=== PATIENT | female | born 1945 | race Caucasian/White ===

== ENCOUNTER 2016-06-12 17:22 | Inpatient (IN) ==
[2016-06-12] MEDS ORDERED: *HR* OxyCODONE Immed Rel 5 MG TABLET PO PRN (18:03)
[2016-06-12] MEDS: Baclofen 10 MG TABLET PO SCH (20:56)
[2016-06-12] MEDS: Pregabalin 50 MG CAPSULE PO SCH (20:56)
[2016-06-12] MEDS: Gabapentin 400 MG CAPSULE PO SCH (20:57)
[2016-06-13 04:59] LABS: INR 1.2; Prothrombin Time 13.5 Seconds (9.4-12.1)
[2016-06-13 05:02] LABS: Activated Partial Thrombo Time 27.9 Seconds (26.0-36.0)
[2016-06-13 05:09] LABS: BUN/Creatinine Ratio 18 (6-26); Blood Urea Nitrogen 12 mg/dL (7-20); Calcium 8.9 mg/dL (8.6-10.8); Carbon Dioxide 24 mEq/L (19-29); Chloride 108 mEq/L (98-109); Glucose 96 mg/dL (70-99); Osmolality,Calculated 292 (280-300); Potassium 3.3 mEq/L (3.5-4.5); Sodium 141 mEq/L (136-145); eGFR For African Americans > 60 (> 60); eGFR For Non-African Americans > 60 (> 60)
[2016-06-13 06:01] LABS: Basophils % 0.4 %; Eosinophils # 0.3 K/mcL (0.0-0.6); Eosinophils % 2.5 %; Hematocrit 26.7 % (35.3-44.9); Hemoglobin 8.7 g/dL (11.5-15.4); Immature Granulocytes % 0.6 % (0-4); Lymphocytes # 1.6 K/mcL (0.6-4.6); Lymphocytes % 16.2 %; Mean Corpuscular HGB Conc 32.6 g/dL (31.6-35.5); Mean Corpuscular Hemoglobin 29.2 pg (28.0-33.3); Mean Corpuscular Volume 89.6 fL (83.0-100.0); Mean Platelet Volume 10.3 fL (9.4-12.4); Monocytes # 0.8 K/mcL (0.0-1.3); Monocytes % 8.1 %; Neutrophils # 7.3 K/mcL (1.6-8.9); Platelet Count 242 K/mcL (140-400); Red Blood Count 2.98 M/mcL (3.82-4.97); Red Cell Distribution Width 14.6 % (11.5-14.5); Segmented Neutrophils % 72.2 %
[2016-06-13] MEDS: Gabapentin 400 MG CAPSULE PO SCH ×3 (08:22→21:26)
[2016-06-13] MEDS: Pregabalin 50 MG CAPSULE PO SCH ×2 (08:23→21:26)
[2016-06-13] MEDS: Baclofen 10 MG TABLET PO SCH ×3 (08:23→21:26)
--- NOTE | 2016-06-13 08:30 | Internal Med History&Physical ---
Date of Encounter: 06/13/16 Time of Encounter: 08:27 Assessment and Plan (1) History of lumbar fusion Current visit: Yes Status: Acute PT OT to improve functional endurance, mobility and transfer. PTOT to work on standing tolerance balance gait improving strength. Internal Medicine - H&P: HPI Admitted From: Intrahospital Transfer History of present illness: Ms. Villareal is a 70 year old female admitted to this facility status post lumbar spinal fusion. She is a history of lumbar stenosis with radiculopathy spondylolisthesis. Today's examination she complains of moderate postop pain. She denies initial dose of breath. No chest pain. No numbness weakness. Past Med Surg Social Fam HX - Past Medical History Medical history: arthritis, GERD, hypertension Psychiatric history: depression - Past Surgical History Surgical History: hysterectomy, knee replacement, orthopedic, other - Social History Smoking Status: Never smoker Smokeless Tobacco Status: No Alcohol use: none Drug use: none - Family History Father Living Status: Hx Family Cardiac Disorders: Yes ([place]) Mother Living Status: Hx Family Neurologic Disorders: Yes (alzheimer's) Internal Medicine - H&P: Meds Baclofen [Lioresal] 10 mg PO TID 06/09/16 [History] Dicyclomine [Bentyl] 10 mg PO QID PRN 06/09/16 [History] Gabapentin [Neurontin] 800 mg PO TID 06/09/16 [History] Nebivolol HCl [Bystolic] 10 mg PO DAILY 06/09/16 [History] Pantoprazole Sodium [Protonix] 40 mg PO DAILY PRN 06/09/16 [History] Pregabalin [Lyrica] 200 mg PO BID 06/09/16 [History] Simvastatin [Zocor] 20 mg PO DAILY 06/09/16 [History] Tramadol HCl [Ultram] 50 mg PO TID PRN 06/09/16 [History] OxyCODONE Immed Rel [Roxicodone 5 MG] 5 mg PO Q4HR PRN #60 tablet 06/12/16 [Rx] Allergies aspirin Adverse Reaction (Verified 06/09/16 14:32) See Comments bleeding ulcer NSAIDS (Non-Steroidal Anti-Inflamma Adverse Reaction (Verified 06/09/16 14:32) See Comments bleeding ulcer All Systems PM: A 10-system review of systems was performed and is negative for pertinent findings except as documented above in the HPI. - Cardiovascular Cardiovascular ROS IM: no chest pain, no diaphoresis, no dyspnea, no lightheadedness, no palpitations, no syncope - Respiratory Respiratory: no cough, no dyspnea, no wheezing, no excessive phlegm production - Gastrointestinal Gastrointestinal: no abdominal pain, no diarrhea, no hematemesis, no hematochezia, no melena, no nausea, no vomiting - Musculoskeletal Musculoskeletal ROS IM: back pain, limited range of motion - Constitutional Vitals: Temp Pulse Resp BP Pulse Ox 100.6 F H 83 18 153/83 94 L 06/13/16 07:26 06/13/16 07:26 06/13/16 07:26 06/13/16 07:26 06/13/16 07:26 General appearance: Present: A&O X 3, pleasant, no acute distress - Respiratory Respiratory exam: Present: CTAB. Absent: accessory muscle use, rales, rhonchi, wheezes - Cardiovascular Cardiovascular exam: Present: RRR, +S1, +S2. Absent: diastolic murmur, gallop, rubs, systolic murmur - GI/Abdominal GI/Abdominal exam: Present: normal bowel sounds, soft, no peritoneal signs. Absent: distended, tenderness - Extremities Exam Extremities exam: Present: warm, radial pulses palpable and symetrical. Absent : calf tenderness, cyanotic, pedal edema - Incison Incision: Present: clean and dry - Back Exam Back exam: Present: tenderness Internal Med - H&P Results - Labs CBC & Chem 7: 06/13/16 04:30 06/13/16 04:30 Labs: Short CBC 06/13/16 Range/Units 04:30 WBC 10.1 (4.3-11.1) K/mcL Hgb 8.7 L (11.5-15.4) g/dL Hct 26.7 L (35.3-44.9) % Plt Count 242 (140-400) K/mcL Neutrophils # 7.3 (1.6-8.9) K/mcL BMP 06/13/16 04:30 Sodium 141 Potassium 3.3 L Chloride 108 Carbon Dioxide 24 BUN 12 Creatinine 0.65 Glucose 96 Calcium 8.9 - VTE Documentation of Mechanical Device: Graduated compression elastic hosiery
[2016-06-14] MEDS: Gabapentin 400 MG CAPSULE PO SCH ×3 (08:06→19:50)
[2016-06-14] MEDS: Baclofen 10 MG TABLET PO SCH ×3 (08:06→19:48)
[2016-06-14] MEDS: Pregabalin 50 MG CAPSULE PO SCH ×2 (08:06→19:49)
[2016-06-15] MEDS: Baclofen 10 MG TABLET PO SCH ×3 (10:10→20:34)
[2016-06-15] MEDS: Gabapentin 400 MG CAPSULE PO SCH ×3 (10:10→20:34)
[2016-06-15] MEDS: Pregabalin 50 MG CAPSULE PO SCH ×2 (10:10→20:34)
--- NOTE | 2016-06-15 12:10 | Internal Med Progress Note ---
Date of Encounter: 06/15/16 Time of Encounter: 12:08 - Assessment and plan (1) History of lumbar fusion Current Visit: Yes Status: Acute Assessment and plan: He should is postop for lumbar fusion due to spinal stenosis (2) Lumbar stenosis Current Visit: No Status: Chronic Assessment and plan: Long-standing lumbar stenosis with compression. Patient states she had numbness of both lower extremities (3) Spondylolisthesis Current Visit: No Status: Chronic Assessment and plan: Noted Qualifiers: Spinal region: lumbar Qualified Code(s): M43.16 - Spondylolisthesis, lumbar region - Time Spent With Patient less than 15 minutes - Subjective Interval history: Patient states the pain is better each day and her movements are much improved independently. - Constitutional Vitals: Temp Pulse Resp BP Pulse Ox 98.3 F 78 18 129/73 97 06/15/16 06:00 06/15/16 06:00 06/15/16 06:00 06/15/16 06:00 06/15/16 06:00 General appearance: Present: A&O X 3, pleasant, no acute distress - Head Head exam: Present: atraumatic, normal inspection, normocephalic - Neck Neck exam general surgery: Present: supple, trachea midline. Absent: lymphadenopathy - Respiratory Respiratory exam: Present: CTAB. Absent: accessory muscle use, rales, rhonchi, wheezes - Cardiovascular Cardiovascular exam: Present: RRR, +S1, +S2. Absent: diastolic murmur, gallop, rubs, systolic murmur - GI/Abdominal GI/Abdominal exam: Present: normal bowel sounds, soft, no peritoneal signs. Absent: distended, tenderness Internal Medicine: Result - Labs CBC & Chem 7: 06/13/16 04:30 06/13/16 04:30 Labs: We will follow-up with potassium etc. - ABG Interpretation ABG results: PT/INR, D-dimer PT 13.5 Seconds (9.4-12.1) H 06/13/16 04:30 - VTE Documentation of Mechanical Device: Graduated compression elastic hosiery Consult Discharge Plan - Plan Referrals: Michela England, PAC [Physician Automotive Service Technician] - 06/24/16 8:20 am Lon Huitron MD [Primary Care Provider] -
[2016-06-16 06:10] LABS: BUN/Creatinine Ratio 16 (6-26); Basophils # 0.1 K/mcL (0.0-0.2); Basophils % 0.7 %; Blood Urea Nitrogen 9 mg/dL (7-20); Carbon Dioxide 24 mEq/L (19-29); Chloride 109 mEq/L (98-109); Eosinophils # 0.5 K/mcL (0.0-0.6); Glucose 97 mg/dL (70-99); Hematocrit 25.7 % (35.3-44.9); Hemoglobin 8.3 g/dL (11.5-15.4); Lymphocytes # 1.3 K/mcL (0.6-4.6); Lymphocytes % 19.1 %; Mean Corpuscular HGB Conc 32.3 g/dL (31.6-35.5); Mean Corpuscular Volume 89.9 fL (83.0-100.0); Mean Platelet Volume 9.4 fL (9.4-12.4); Monocytes # 0.8 K/mcL (0.0-1.3); Monocytes % 11.5 %; Neutrophils # 4.1 K/mcL (1.6-8.9); Osmolality,Calculated 295 (280-300); Platelet Count 333 K/mcL (140-400); Potassium 3.9 mEq/L (3.5-4.5); Red Blood Count 2.86 M/mcL (3.82-4.97); Red Cell Distribution Width 14.5 % (11.5-14.5); Segmented Neutrophils % 60.7 %; Sodium 143 mEq/L (136-145); eGFR For African Americans > 60 (> 60); eGFR For Non-African Americans > 60 (> 60)
[2016-06-16 07:20] VITALS: BP 148/79
[2016-06-16] MEDS: Pregabalin 50 MG CAPSULE PO SCH (08:10)
[2016-06-16] MEDS: Gabapentin 400 MG CAPSULE PO SCH ×2 (08:10→14:59)
[2016-06-16] MEDS: Baclofen 10 MG TABLET PO SCH ×2 (08:16→14:59)
--- NOTE | 2016-06-16 11:42 | Internal Med Progress Note ---
Date of Encounter: 06/16/16 Time of Encounter: 11:40 - Assessment and plan (1) History of lumbar fusion Current Visit: Yes Status: Acute Assessment and plan: Patient has undergone lumbar fusion status post spinal stenosis and is much improved pain is improved. (2) Lumbar stenosis Current Visit: Yes Status: Chronic Assessment and plan: Is the cause for her surgery is lumbar stenosis (3) Spondylolisthesis Current Visit: No Status: Chronic Assessment and plan: Noted Qualifiers: Spinal region: lumbar Qualified Code(s): M43.16 - Spondylolisthesis, lumbar region - Time Spent With Patient less than 15 minutes - Subjective Interval history: H and smiling working with PT walking down the braun using a walker - Constitutional Vitals: Temp Pulse Resp BP Pulse Ox 98.7 F 77 16 148/79 99 06/16/16 07:00 06/16/16 07:00 06/16/16 07:00 06/16/16 07:00 06/16/16 07:00 General appearance: Present: A&O X 3, pleasant, no acute distress - Head Head exam: Present: atraumatic, normal inspection, normocephalic - Neck Neck exam general surgery: Present: supple, trachea midline. Absent: lymphadenopathy - Respiratory Respiratory exam: Present: CTAB. Absent: accessory muscle use, rales, rhonchi, wheezes - Cardiovascular Cardiovascular exam: Present: RRR, +S1, +S2. Absent: diastolic murmur, gallop, rubs, systolic murmur - GI/Abdominal GI/Abdominal exam: Present: normal bowel sounds, soft, no peritoneal signs. Absent: distended, tenderness Internal Medicine: Result - Labs CBC & Chem 7: 06/16/16 05:30 06/16/16 05:30 Labs: Short CBC 06/16/16 Range/Units 05:30 WBC 6.8 (4.3-11.1) K/mcL Hgb 8.3 L (11.5-15.4) g/dL Hct 25.7 L (35.3-44.9) % Plt Count 333 (140-400) K/mcL Neutrophils # 4.1 (1.6-8.9) K/mcL BMP 06/16/16 05:30 Sodium 143 Potassium 3.9 Chloride 109 Carbon Dioxide 24 BUN 9 Creatinine 0.58 Glucose 97 Calcium 9.0 Labs look stable - ABG Interpretation ABG results: PT/INR, D-dimer PT 13.5 Seconds (9.4-12.1) H 06/13/16 04:30 - VTE Documentation of Mechanical Device: Graduated compression elastic hosiery Consult Discharge Plan - Plan Referrals: Michela England, PAC [Physician Aluminum Fabrication Supervisor] - 06/24/16 8:20 am Lon Huitron MD [Primary Care Provider] -
--- NOTE | 2016-06-16 14:13 | Discharge Summary ---
Date of Encounter: 06/16/16 Time of Encounter: 14:11 - Discharge Diagnosis (1) History of lumbar fusion Priority: Primary Status: Acute Comments: Patient had lumbar stenosis and surgery . (2) Lumbar stenosis Priority: Primary Status: Chronic Comments: This is the reason for the surgery (3) Spondylolisthesis Priority: Secondary Status: Chronic Comments: Noted Qualifiers: Spinal region: lumbar Qualified Code(s): M43.16 - Spondylolisthesis, lumbar region - Discharge Medications Home Medications: Baclofen [Lioresal] 10 mg PO TID 06/09/16 [History] Dicyclomine [Bentyl] 10 mg PO QID PRN 06/09/16 [History] Gabapentin [Neurontin] 800 mg PO TID 06/09/16 [History] Nebivolol HCl [Bystolic] 10 mg PO DAILY 06/09/16 [History] Pantoprazole Sodium [Protonix] 40 mg PO DAILY PRN 06/09/16 [History] Pregabalin [Lyrica] 200 mg PO BID 06/09/16 [History] Simvastatin [Zocor] 20 mg PO DAILY 06/09/16 [History] Tramadol HCl [Ultram] 50 mg PO TID PRN 06/09/16 [History] OxyCODONE Immed Rel [Roxicodone 5 MG] 5 mg PO Q4HR PRN #60 tablet 06/12/16 [Rx] Allergies/Adverse Reactions: Allergies aspirin Adverse Reaction (Verified 06/09/16 14:32) See Comments bleeding ulcer NSAIDS (Non-Steroidal Anti-Inflamma Adverse Reaction (Verified 06/09/16 14:32) See Comments bleeding ulcer Date of admission: 06/12/16 17:23 Primary care physician: Lon Huitron MD Consults: 06/12/16 17:52 Consult to Occupational Therapy [CONS] Routine Comment: Evaluate, develop and implement POC Consult to Physical Medicine/Rehab [CONS] Routine Reason for Consult: s/p lumbar spinal fusion Call Completed: Yes Consult to Physical Therapy [CONS] Routine Comment: Evaluate, develop and implement POC Consult to Recreational Therapy [CONS] Routine Comment: Evaluate, develop and implement POC Consult to Variety Lathe Operator [CONS] Routine Reason for SW Consult: d/c planning s/p lumbar spinal fusion Discharging clinician: Joseph Lee Anticipated date of discharge: 02/20/17 - Patient Status Disposition: Home, Self-Care Condition: Good Functional capacity at discharge: uses cane/walker Overall status at discharge: patient is progressing back to baseline - Discharge Instructions Follow Up With: Michela England PAC [Physician Wealth Management Consultant] - 06/24/16 8:20 am Lon Huitron MD [Primary Care Provider] - - Diet and Activity Activity: ambulate only with your walker Interval History: Patient was transferred here postop has done extremely well Hospital course: Ms. Villareal is a 70 year old female Patient's doing very well ambulating in the [place] pain is much improved she is going to be discharged home in the company of her family and follow-up as an outpatient. - Time Spent with Patient Total time spent providing and/or coordinating discharge services: Less than 30 minutes - Constitutional Vitals: Temp Pulse Resp BP Pulse Ox 98.7 F 77 16 148/79 99 06/16/16 07:00 06/16/16 07:00 06/16/16 07:00 06/16/16 07:00 06/16/16 07:00 General appearance: Present: A&O X 3, pleasant, no acute distress - Head Head exam: Present: atraumatic, normal inspection, normocephalic - Neck Neck exam general surgery: Present: supple, trachea midline. Absent: lymphadenopathy - Respiratory Respiratory exam: Present: CTAB. Absent: accessory muscle use, rales, rhonchi, wheezes Additional comments: Slight end expiratory wheezes - Cardiovascular Cardiovascular exam: Present: RRR, +S1, +S2. Absent: diastolic murmur, gallop, rubs, systolic murmur - VTE Documentation of Mechanical Device: Graduated compression elastic hosiery
== END 2016-06-16 15:30 | disposition home or self-care (01) | DRG 950 ==
LOC: INPGRE 17:23
PROVIDERS: ADMIT Internal Medicine; ATTEND Internal Medicine